=== PATIENT | female | born 1960 | race Caucasian/White ===

== ENCOUNTER → 2019-05-02 | Outpatient (REF) | payer OTHER ==
[2019-05-05 14:07] LABS: HPV HYBRID CAPTURE II Negative (Negative)
== END ==
LOC: M LAB LCGH 13:32
PROVIDERS: ATTEND Obstetrics & Gynecology
DX: Z12.4 Encounter for screening for malignant neoplasm of cervix (principal); Z85.3 Personal history of malignant neoplasm of breast; Z92.21 Personal history of antineoplastic chemotherapy; N95.2 Postmenopausal atrophic vaginitis

== ENCOUNTER → 2020-01-24 | Outpatient (REF) | payer OTHER | LOC: M LAB REF 10:27 | PROVIDERS: ATTEND Physician Assistant | DX: L81.7 Pigmented purpuric dermatosis (principal) ==